=== PATIENT | female | born 1940 | race Caucasian/White ===

== ENCOUNTER 2019-06-01 06:11 | Day surgery (SDC) | payer MEDICARE, SELFPAY ==
[2019-05-31 13:31] VITALS: BMI 29.6
[2019-06-01] MEDS: sodium chloride 0.9% 1,000 ML 30 ML (07:00)
--- NOTE | 2019-06-01 07:10 | ANES.PREANES ---
Pre-Anesthetic Assessment Pre-Anesthetic Assessment: Height/Weight: Height 1.57 m Weight 73.482 kg Proposed Procedure: Operation Date: 06/01/19 07:30 Proposed Procedures p Colonoscopy(Not Applicable) - Alberto Harrison MD Last intake: Intake Last Liquid Date 05/31/19 Last Liquid Time 22:30 Last Solid Date 05/31/19 Last Solid Time 22:30 Social: Social History: Tobacco (never) Exam: Pre-Anes Outpt Exam: alert, oriented x 3, clear to auscultation bilaterally and regular rate & rhythm (history of pneumonia 2017) Airway: Submandibular: WNL Cervical ROM: WNL MP: 2 Additional comments: no chips/broken teeth noted Pulmonary: Pulmonary: SOB (seasonal allergies) CV/HEM: CV/HEM: HTN : Comments: kidney stones GI: GI: GERD Metabolic: Metabolic: Hyperlipidemia (diet controlled) Musc/skel: Musc/skel: OA/DJD (bilateral knee replacements) Comments: history of falls Anesthetic Plan: ASA status: III Anesthesia: MAC Risk of > 500 ml blood loss (7ml/kg in children): No PFSH Anesthesia PFSH: Family History Father Throat cancer Brother Lung cancer Grandmother Lung cancer Family/Other Breast cancer Sister Stroke Daughter Diabetes Other CHF (congestive heart failure) Data Anesthesia Cardiac Studies: No Data to Display
[2019-06-01 07:42] VITALS: BP 159/83; PULSE 81; RESP 20; TEMP 37.4; O2SAT 96
--- NOTE | 2019-06-01 07:51 | PM.HPUD ---
H&P update H&P Update: DATE OF SURGERY/PROCEDURE: 06/01/19 DATE H&P PERFORMED: 06/01/19 H&P UPDATE INFORMATION: No changes to prior documentation and H&P to be scanned into chart PLANNED PROCEDURE: Operation Date: 06/01/19 07:30 Proposed Procedures p Colonoscopy(Not Applicable) - Alberto Harrison MD Full H&P HPI: PRIMARY INDICATION/DIAGNOSIS FOR SURGICAL PROCEDURE: Colon cancer screening PLANNED PROCEDURE: Screening colonoscopy HPI: The patient is a 78-year-old female who presents to the endoscopy suite today after having consulted with me in the office. The patient has had 1 previous colonoscopy in 2002. She desires a another colonoscopy due to her family history. Due to her age being greater than 75 years old, we had an extensive discussion about the pros and cons, and I made it clear to her that in her circumstance it may be appropriate not to do a colonoscopy at this time. Because of her family history and her concerns, together with it being 17 years since she has had one done, she wanted to proceed, and I agreed to do the procedure. Perinent History: Family History: Family History (Updated 05/31/19 @ 13:36 by Dee Mcdaniels LPN) Father Throat cancer Brother Lung cancer Grandmother Lung cancer Family/Other Breast cancer Sister Stroke Daughter Diabetes Other CHF (congestive heart failure) A&P Additional A&P Information Additional A&P Information: Colon cancer screening via screening colonoscopy . Risks were discussed with patient including risks of bleeding, perforation, and sedation.
[2019-06-01 08:12] VITALS: BP 89/56; PULSE 84; RESP 16; TEMP 36.2; O2SAT 97
[2019-06-01 08:30] VITALS: BP 132/71; PULSE 60; RESP 16
[2019-06-01 08:55] VITALS: BP 154/70; PULSE 60; RESP 16; O2SAT 100
--- NOTE | 2019-06-01 10:17 | PM.PACU ---
PACU note Post-Anesthesia Exam: awake and vital signs stable
== END 2019-06-01 09:03 | disposition home or self-care (01) ==
PROVIDERS: Family Provider Family Medicine; PCP Physician Assistant; Visit Provider Family Medicine
PROC: 0DJD8ZZ Inspection of Lower Intestinal Tract, Via Natural or Artificial Opening Endoscopic (ICD-10-PCS; CPT 45378; principal; 2019-06-01 07:30)
DX: Z12.11 Encounter for screening for malignant neoplasm of colon (principal); Z80.0 Family history of malignant neoplasm of digestive organs; Z80.8 Family history of malignant neoplasm of other organs or systems; Z80.3 Family history of malignant neoplasm of breast; Z80.1 Family history of malignant neoplasm of trachea, bronchus and lung; Z82.49 Family history of ischemic heart disease and other diseases of the circulatory system; Z82.3 Family history of stroke; Z83.3 Family history of diabetes mellitus; M19.90 Unspecified osteoarthritis, unspecified site
CPT/HCPCS: 45378; 99221; G0121; J2704; J7030

== ENCOUNTER 2019-06-09 21:05 | Emergency (ER) | payer MEDICARE, SELFPAY ==
[2019-06-09 21:07] VITALS: PULSE 76; RESP 18; TEMP 36.4; O2SAT 98; BMI 25.8
--- NOTE | 2019-06-09 22:10 | XRR_ITS ---
PROCEDURE INFORMATION: Exam: XR Left Elbow Exam date and time: 06/09/2019 10:26 PM Age: 79 years old Clinical indication: Injury or trauma; Fall; Initial encounter; Blunt trauma (contusions or hematomas; Elbow; Left TECHNIQUE: Imaging protocol: XR Left elbow. Views: 3 or more views. COMPARISON: No relevant prior studies available. FINDINGS: Bones/joints: Normal. Soft tissues: Normal. XR/XR elbow LT min 3V* [id number] IMPRESSION: No acute findings.
--- NOTE | 2019-06-09 22:10 | ED_ITS ---
Entered by Starr Johnson, acting as scribe for Gianluca Hernandez DO Jun 09, 2019 21:05 HPI - Fall General: Chief Complaint: Fall Stated Complaint: FALL Time Seen by Provider: 06/09/19 22:10 Source: patient and family Mode of arrival: ambulatory History of Present Illness: HPI Narrative: 79 y/o female presents to the ED post fall down stairs. Pt states she was at the [employer] when this occurred. She reports having left hip and elbow pain. MD complaint: fall Onset (ago): hour(s) Fall from: standing Fall witnessed: yes, by family Place fall occurred: other ([id number] basketball game) Loss of consciousness: None Location of injury: other (left hip) Location of injury - extremities: Left: shoulder and elbow Severity: moderate Quality: sharp Associated symptoms-after fall: Reports difficulty walking; Denies abdominal pain, chest pain, confusion, headache(s), hematuria, neck pain or vertigo Review of Systems Const: Denies: fever or chills Eyes: Denies: change in vision or blurry vision ENMT: Denies: painful swallowing, swelling of lips/tongue, bleeding gums, dental pain, Change in hearing, nose bleeds, post nasal drip or facial/sinus pain Card: Denies: chest pain, palpitations, irregular heart rhythm, edema, swelling of feet/ankles, shortness of breath on exertion or shortness of breath when lying down Resp: Denies: shortness of breath, productive cough, non-productive cough or wheezing GI: Denies: abdominal pain, nausea, vomiting, rectal pain, blood in stool or black tarry stool : Denies: painful urination, urinary frequency, urinary urgency or blood in urine Musc: Reports: extremity pain (left shoulder, elbow, hip/groin), extremity swelling (left elbow) and joint pain; Denies: neck pain, back pain, redness or joint warmth Skin/Breast: Denies: rash, itching or redness Neuro: Reports: difficulty walking; Denies: headache, dizziness, vertigo, confusion or seizure-like activity Psych: Denies: anxiety, visual hallucinations or auditory hallucinations PFSH ED PFSH: Statuses (acute, chronic, etc) shown below reflect problem list status as previously entered and may not be historically accurate Social History (Reviewed 06/01/19 @ 07:18 by LEONIE Bourgeois Smoking and tobacco status: never smoked Physical Exam Const: COMMON NORMALS: alert GENERAL APPEARANCE: well developed ORIENTATION/CONSCIOUSNESS: Yes awake, Yes oriented to person, Yes oriented to place and Yes oriented to time HENMT: COMMON NORMALS: normocephalic, external ears normal, external nose normal and moist oral mucous membranes HEAD & SCALP: normocephalic; no scalp tenderness FACE & SINUS: normal facial exam NOSE: external nose normal and no nasal discharge EXTERNAL EAR: Yes external ears normal MOUTH: tongue normal TEETH & GINGIVA: no abnormal tooth and associated gingiva THROAT: posterior oropharynx normal; no peritonsillar mass Eye: COMMON NORMALS: PERRL, EOMs intact bilaterally and conjunctivae normal EYELID: eyelids normal CONJUNCTIVA: Yes conjunctivae normal PUPIL: Yes PERRL Neck/C-Spine: COMMON NORMALS: full ROM GENERAL: No tracheal deviation CERVICAL SPINE: Yes normal cervical lordosis, No cervical spine tenderness, No step off deformity, No paracervical muscle tenderness and No paracervical muscle spasm Chest: COMMONS NORMALS: inspection of chest normal CHEST: Yes symmetrical chest wall rise and No tenderness Resp: COMMON NORMALS: clear to auscultation bilaterally EFFORT & INSPECTION: No tachypneic, No respiratory distress, No retractions, No uses accessory muscles and No tracheal deviation AUSCULTATION: clear to auscultati on bilaterally, no rhonchi, no wheezes and lung sounds not diminished Cardio: COMMON NORMALS: regular rate and regular rhythm RATE: regular rate RHYTHM: regular rhythm HEART SOUNDS: no murmurs PERIPHERAL PULSES: radial pulses present GI: INSPECTION: No abdominal distension AUSCULTATION: No hyperactive bowel sounds and No hypoactive bowel sounds PALPATION: No tender, No guarding and No rigid PERCUSSION: no dullness to percussion and no tympanic to percussion Back/Pelvis: PELVIS: Yes other (pain with external rotation) COCCYX: other (pain with external rotation) Extremity: LEFT UPPER EXTREMITY: Yes elbow joint Left elbow: Yes palpation (tender) LEFT LOWER EXTREMITY: Yes hip joint Left hip: Yes inspection, Yes palpation (Tender on palpation anteriorly, and laterally. Negative logroll. Positive on [facility] testing) and No ROM Neuro: SENSORIUM/ORIENTATION: Yes alert, Yes oriented to person, Yes oriented to place and Yes oriented to time Psych: COMMON NORMALS: mental status grossly normal and speech normal SPEECH: Yes normal speech Skin: COMMON NORMALS: no rashes or lesions noted GENERAL SKIN EXAM: no rashes or lesions noted Course Vital Signs: Vital signs: Vital Signs Temperature 97.6 F 06/09/19 21:07 Pulse Rate 56 L 06/10/19 02:51 Respiratory Rate 18 06/10/19 02:51 Blood Pressure 170/77 06/10/19 02:51 Pulse Oximetry 95 06/10/19 02:51 MDM - Fall MDM Narrative: Medical decision making narrative: 79-year-old female presents in pain following a fall from standing height at a basketball game. X-rays of the left hip and the left elbow, her complaints of pain, were read negative by radiology. She is able to put some weight on the hip. There is no deformity. She can bend the elbow. She does have some what appears to be traumatic olecranon bursitis on the left. She will receive an Roberto Carlos wrap for this. She received some pain medication, as she was quite hypertensive, and attributed this to the her pain level. She got nauseated after the pain medication, and threw up a few times. After this began to resolve following oral Zofran, her pressure came down, and she was allowed discharge. Discharge Plan Discharge Patient Disposition: Home, Self-Care Clinical Impression: Contusion of left elbow Qualifiers: Encounter type: initial encounter Qualified Code(s): S50.02XA - Contusion of left elbow, initial encounter Contusion of hip, left Qualifiers: Encounter type: initial encounter Qualified Code(s): S70.02XA - Contusion of left hip, initial encounter Condition: Stable Prescriptions: New tramadol 50 mg tablet 50 mg PO Q4H PRN (Reason: pain) Qty: 20 RF: 0 No Action metoprolol succinate 50 mg tablet extended release 24 hr 50 mg PO DAILY RF: 0 acetaminophen [8 Hour Pain Reliever] 650 mg Tablet Extended Release 650 mg PO BID PRN (Reason: Pain) RF: 0 losartan-hydrochlorothiazide 100-25 mg tablet 1 tab PO DAILY RF: 0 montelukast [Singulair] 10 mg tablet 10 mg PO DAILY RF: 0 gabapentin 100 mg capsule 100 mg PO BEDTIME RF: 0 fluticasone propionate [Flonase Allergy Relief] 50 mcg/actuation [place],Suspension 1 spray INTRANASAL DAILY RF: 0 Discharge Orders: Discharge Order (Routine); Ordered 06/09/19 Ordered By: Gianluca Hernandez Referrals: Robin Parikh DO [Family Provider] - Tressa Mcgill PA [Primary Care Provider] - 4-7 days Discharge Diet: Usual diet Discharge Activity: Increase activity as tolerated Patient Instructions: Contusion in Adults (ED) Activity Restrictions/Additional Instructions: Ice to both areas frequently. You may require the use of a cane, crutch, or walker for a few days. You may weight-bear as tolerated otherwise. Return for worsening pain despite treatment, inability to ambulate, other concerning symptoms. Discharge Date/Time: 06/10/19 02:48 Coding Level of Care Code ED Agricultural Purchasing Agent for Chg Fwd The documentation recorded by the Alex le Ashley, accurately reflects the service I personally performed and the decisions made by David berg Jeremy John, DO Jun 09, 2019 21:05
--- NOTE | 2019-06-09 22:10 | XRR_ITS ---
PROCEDURE INFORMATION: Exam: XR Left Hip with Pelvis when Performed Exam date and time: 06/09/2019 10:26 PM Age: 79 years old Clinical indication: Injury or trauma; Fall; Initial encounter; Blunt trauma (contusions or hematomas); Left; Hip TECHNIQUE: Imaging protocol: XR Left hip with pelvis when performed. Views: 2 or 3 views. COMPARISON: CR Pelvis AP 1 or 2 views* [id number] 06/28/2017 4:03 PM FINDINGS: Bones/joints: Unremarkable. No acute fracture. Soft tissues: Unremarkable. XR/XR hip LT 2-3V wo/w pel* [id number] IMPRESSION: No acute findings.
[2019-06-09 22:11] VITALS: BP 191/78; PULSE 86; RESP 17; O2SAT 96
[2019-06-09] MEDS: TRAMadol 50 mg Tablet 100 MG PO (23:02)
[2019-06-09 23:49] VITALS: BP 228/111; RESP 20; O2SAT 99
[2019-06-09] MEDS: cloNIDine 0.1 mg Tablet 0.2 MG PO (23:49)
[2019-06-09] MEDS: HYDROmorphone 1 mg/mL INJ 1 mL 1.5 MG IM (23:49)
[2019-06-10] MEDS: ondansetron 4 MG Tablet PO (01:30)
[2019-06-10 02:19] VITALS: BP 176/108; RESP 18; O2SAT 92
[2019-06-10 02:51] VITALS: BP 170/77; PULSE 56; RESP 18; O2SAT 95
== END 2019-06-10 02:48 | disposition home or self-care (01) ==
PROVIDERS: Emergency Provider Emergency Medicine; Family Provider Family Medicine; PCP Physician Assistant
DX: S50.02XA Contusion of left elbow, initial encounter (principal); S70.02XA Contusion of left hip, initial encounter; W10.8XXA Fall (on) (from) other stairs and steps, initial encounter; Y92.89 Other specified places as the place of occurrence of the external cause
CPT/HCPCS: 73080; 73502; 96372; 99281; J1170; Q0162

== ENCOUNTER 2019-06-18 15:57 | Outpatient (CLI) | payer MEDICARE, SELFPAY ==
--- NOTE | 2019-06-18 16:06 | CTR_ITS ---
PROCEDURE INFORMATION: Exam: CT Pelvis Without Contrast; Skeletal Exam date and time: 06/18/2019 4:07 PM Age: 79 years old Clinical indication: Pain and injury or trauma; Fall; Initial encounter; Blunt trauma (contusions or hematomas); Hip pain; Left hip; Injury date: 1 week ago; Additional info: Acute left hip pain. Left hip included in pelvis. TECHNIQUE: Imaging protocol: Computed tomography images of the pelvis without contrast. Exam focused on the skeletal structures. Total DLP: 584.34 mGy-cm Radiation optimization: All CT scans at this facility use at least one of these dose optimization techniques: automated exposure control; mA and/or kV adjustment per patient size (includes targeted exams where dose is matched to clinical indication); or iterative reconstruction. COMPARISON: CR XR hip LT 2-3V wo/w pel* [id number] 06/09/2019 10:12 PM FINDINGS: Intraperitoneal space: No free fluid within the pelvis or within the dependent portions of the peritoneum. Vasculature: Calcification of the aorta. Bones/joints: osseous structures of the pelvis without an acute process. Sacroiliac joints without separation/diastases/fracture. Iliac bones unremarkable/noncontributory Mild degenerative changes within the hips Degenerative changes within the visualized portions of the caudal aspect of the lumbar spine. Mild. Soft tissues: Unremarkable. Other findings: rami are intact. CT/CT bony pelvis [id number] IMPRESSION: No acute process. Mild degenerative changes within the hips and lumbar spine. Radiation Dose CTDIVOL = (mGy): DLP = 584.34 (mGy-cm)
== END 2019-06-18 15:58 | disposition home or self-care (01) ==
PROVIDERS: Family Provider Physician Assistant; PCP Physician Assistant; Visit Provider Physician Assistant
DX: M16.12 Unilateral primary osteoarthritis, left hip (principal); M47.896 Other spondylosis, lumbar region; M25.552 Pain in left hip; R10.2 Pelvic and perineal pain
CPT/HCPCS: 72192

== ENCOUNTER 2020-02-19 00:01 | Emergency (ER) | payer MEDICARE, SELFPAY ==
--- NOTE | 2020-02-19 00:07 | ECG_ITS ---
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 Measurements Intervals [place] Rate: 70 P: 67 MN: 158 QRS: 10 QRSD: 84 T: 25 QT: 406 QTc: 441 Interpretive Statements SINUS RHYTHM Compared to ECG 08/10/2018 12:14:26 Sinus arrhythmia no longer present Electronically Signed On 02-19-2020 18:28:44 CDT by Rani Gomez M.D. [id number] f
--- NOTE | 2020-02-19 00:07 | XRR_ITS ---
PROCEDURE INFORMATION: Exam: XR Chest, 1 View Exam date and time: 02/19/2020 1:03 AM Age: 79 years old Clinical indication: Condition or disease; Other: Positive covid; Cough and shortness of breath; Prior surgery; Surgery type: RT shoulder; Additional info: Fever TECHNIQUE: Imaging protocol: XR of the chest Views: 1 view. COMPARISON: CR Chest 1 [place] [id number] 08/10/2018 12:16 PM FINDINGS: Lungs: No focal peripheral lung consolidation, air bronchogram formation, or silhouette sign. Pleural space: No pleural effusion or pneumothorax. Heart/Mediastinum: The cardiac silhouette is not enlarged. The mediastinal contours are normal. Bones/joints: The patient has had a right shoulder arthroplasty. Recent surgery as evidenced by changes in the hardware and the presence of skin john. Old, healed left humeral neck fracture and greater tuberosity fracture. XR/XR chest 1V portable [id number] IMPRESSION: No radiographic evidence of pneumonia. However, noncontrast CT CHEST is more sensitive in detecting ground-glass pulmonary opacities seen with COVID-19 pneumonia.
--- NOTE | 2020-02-19 00:16 | W.ED.SOB ---
HPI - SOB/Dyspnea General: Chief Complaint: Chest Pain Stated Complaint: sob/ covid Time Seen by Provider: 02/19/20 00:07 Source: patient Mode of arrival: ambulatory Limitations: no limitations History of Present Illness: HPI Narrative: 79-year-old female who presents here with COVID. States she had a slight cough and chest pain. She tested positive last week. Patient has been was admitted this morning with COVID. Patient is in no distress here and pulse ox on room air is 96%. MD elicited complaint: shortness of breath and cough Associated symptoms: Deny abdominal pain, chest pain, fever(s), nausea or vomiting Review of Systems Const: Denies: fever(s), chills, body aches or change in appetite Eyes: Denies: blurry vision or eye discomfort ENMT: Denies: throat pain or dental pain Card: Denies: chest pain Resp: Reports: dyspnea and non-productive cough GI: Denies: abdominal pain, nausea, vomiting or diarrhea : Denies: dysuria Musc: Denies: neck pain or back pain Skin/Breast: Denies: rash Neuro: Denies: headache(s) Psych: Denies: depression Luis/Lymph: Denies: easy bruising All/Imm: Denies: urticaria PFSH ED PFSH: Family History Father Throat cancer Brother Lung cancer Grandmother Lung cancer Family/Other Breast cancer Sister Stroke Daughter Diabetes Other CHF (congestive heart failure) Social History Smoking and tobacco status: never smoked Physical Exam Const: COMMON NORMALS: no acute distress, patient oriented x3 and healthy appearing HENMT: COMMON NORMALS: normocephalic and atraumatic HEAD & SCALP: normocephalic and atraumatic Eye: COMMON NORMALS: Equal, round and reactive pupils present and EOMs intact bilaterally PUPIL: Yes Equal, round and reactive pupils present Neck/C-Spine: COMMON NORMALS: full ROM and supple Chest: COMMONS NORMALS: normal inspection of the chest and normal palpation of entire chest wall Resp: COMMON NORMALS: normal respiratory effort, No retractions, No use of accessory muscles and clear to auscultation bilaterally AUSCULTATION: clear to auscultation bilaterally Cardio: COMMON NORMALS: regular rate, regular rhythm and No murmurs present (Cardio) RATE: regular rate RHYTHM: regular rhythm GI: COMMON NORMALS: Normal to inspection, nondistended, normoactive bowel sounds present, Soft to palpation, non-tender and no masses PALPATION: Yes Soft to palpation Extremity: COMMON NORMALS: normal to inspection and full ROM Neuro: COMMON NORMALS: patient oriented x3, moves all extremities and no focal motor deficits Psych: COMMON NORMALS: mental status grossly normal, Normal thought process present and cooperative THOUGHT PROCESS: Normal thought process present Skin: COMMON NORMALS: no rashes or lesions noted and no wounds GENERAL SKIN EXAM: no rashes or lesions noted Course Vital Signs: Vital signs: Vital Signs Temperature 98.4 F 02/19/20 00:24 Pulse Rate 78 02/19/20 01:01 Respiratory Rate 28 H 02/19/20 01:01 Blood Pressure 212/79 02/19/20 01:01 Pulse Oximetry 96 02/19/20 01:01 MDM - SOB/Dyspnea MDM Narrative: Medical decision making narrative: Patient presents here with cough fever with COVID. She is not requiring any oxygen is well-appearing here. She is stable for discharge and return if worsening. She has no signs of pneumonia. Lab Data: Labs: Lab Results 02/19/20 02/19/20 02/19/20 Range/Units 00:10 00:10 00:10 WBC 5.4 (4.0-10.0) 10^3/ uL RBC 4.06 L (4.1-5.3) 10^6/u L Hgb 12.1 (11.5-15.3) g/dL Hct 37.8 (37.0-47.0) % MCV 93.1 (81-99) fL MCH 29.8 (28.0-34.0) pg MCHC 32.0 (30.0-36.0) g/dL RDW 11.8 L (12.1-15.1) % Plt Count 304 (130-400) 10^3/c mm MPV 9.8 (7.4-10.4) fL Neut % (Auto) 51.5 % Lymph % (Auto) 31.7 % Larue % (Auto) 9.5 % Eos % (Auto) 6.3 % Baso % (Auto) 0.4 % Neut # (Auto) 2.76 (1.8-7.7) 10^3/u L Lymph # (Auto) 1.7 (0.8-4.8) 10^3/u L Larue # (Auto) 0.5 (0.2-0.9) 10^3/u L Eos # (Auto) 0.3 (0.0-0.8) 10^3/u L Baso # (Auto) 0.0 (0.0-0.1) 10^3/u L Nucleated RBC % (a uto) 0 % Nucleated RBCs # 0.0 /100WBC Fibrinogen 595 H (174-498) mg/dL Sodium 139 (136-145) mmol/L Potassium 3.9 (3.5-5.1) mmol/L Chloride 102 (98-107) mmol/L Carbon Dioxide 25 (22-29) mmol/L Anion Gap 15.9 (5-19) BUN 12 (8-23) mg/dL Creatinine 0.8 (0.5-0.9) mg/dL GFR Calculation Not Reportable Glucose 114 (65-115) mg/dL Calculated Osmolal ity 289 (285-295) mOsm/k g Lactic Acid (0.5-2.2) mmol/L Calcium 8.5 (8.5-10.5) mg/dL Total Bilirubin 0.6 (0.15-1.2) mg/dL AST 24 (0-32) U/L ALT 25 (0-33) U/L Alkaline Phosphata se 83 (35-105) IU/L C-Reactive Protein 7.4 H (0.0-4.9) mg/L NT-Pro-B Natriuret Pep 123 (0-450) pg/mL Total Protein 7.2 (6.6-8.7) g/dL Albumin 4.1 (3.5-5.2) g/dL Globulin 3.1 (1.3-4.6) g/dL 02/19/20 Range/Units 00:10 WBC (4.0-10.0) 10^3/ uL RBC (4.1-5.3) 10^6/u L Hgb (11.5-15.3) g/dL Hct (37.0-47.0) % MCV (81-99) fL MCH (28.0-34.0) pg MCHC (30.0-36.0) g/dL RDW (12.1-15.1) % Plt Count (130-400) 10^3/c mm MPV (7.4-10.4) fL Neut % (Auto) % Lymph % (Auto) % Larue % (Auto) % Eos % (Auto) % Baso % (Auto) % Neut # (Auto) (1.8-7.7) 10^3/u L Lymph # (Auto) (0.8-4.8) 10^3/u L Larue # (Auto) (0.2-0.9) 10^3/u L Eos # (Auto) (0.0-0.8) 10^3/u L Baso # (Auto) (0.0-0.1) 10^3/u L Nucleated RBC % (a uto) % Nucleated RBCs # /100WBC Fibrinogen (174-498) mg/dL Sodium (136-145) mmol/L Potassium (3.5-5.1) mmol/L Chloride (98-107) mmol/L Carbon Dioxide (22-29) mmol/L Anion Gap (5-19) BUN (8-23) mg/dL Creatinine (0.5-0.9) mg/dL GFR Calculation Glucose (65-115) mg/dL Calculated Osmolal ity (285-295) mOsm/k g Lactic Acid 1.6 (0.5-2.2) mmol/L Calcium (8.5-10.5) mg/dL Total Bilirubin (0.15-1.2) mg/dL AST (0-32) U/L ALT (0-33) U/L Alkaline Phosphata se (35-105) IU/L C-Reactive Protein (0.0-4.9) mg/L NT-Pro-B Natriuret Pep (0-450) pg/mL Total Protein (6.6-8.7) g/dL Albumin (3.5-5.2) g/dL Globulin (1.3-4.6) g/dL Imaging Data^: CXR: Attestation: I personally reviewed and interpreted this imaging study as follows: My impression: no acute abnormality EKG Data^: EKG 1: Attestation: I personally reviewed and interpreted this EKG as follows: EKG Interpretation Date: 02/19/20 EKG interpretation time: 00:12 Interpretation: nsr hr [address] or t wave abnormalities qr 84 qtc 427 Discharge Plan Discharge Patient Disposition: Home Clinical Impression: COVID-19 Condition: Stable Prescriptions: No Action tramadol 50 mg tablet 50 mg PO Q4H PRN (Reason: pain) Qty: 20 RF: 0 metoprolol succinate 50 mg tablet extended release 24 hr 50 mg PO DAILY RF: 0 acetaminophen [8 Hour Pain Reliever] 650 mg Tablet Extended Release 650 mg PO BID PRN (Reason: Pain) RF: 0 losartan-hydrochlorothiazide 100-25 mg tablet 1 tab PO DAILY RF: 0 montelukast [Singulair] 10 mg tablet 10 mg PO DAILY RF: 0 gabapentin 100 mg capsule 100 mg PO BEDTIME RF: 0 fluticasone propionate [Flonase Allergy Relief] 50 mcg/actuation [place],Suspension 1 spray INTRANASAL DAILY RF: 0 Discharge Orders: Discharge Order (Routine); Ordered 02/19/20 Ordered By: Hoda Calvin Referrals: Tressa Mcgill PA [Primary Care Provider] - 1-3 days Discharge Diet: Advance as tolerated Discharge Activity: Resume usual activity Patient Instructions: Upper Respiratory Infection (ED) Coding Level of Care Code ED Associate Software Engineer for Chg Fwd Exam Comprehensive
[2020-02-19 00:19] VITALS: BP 229/102; PULSE 75; RESP 25; O2SAT 94
[2020-02-19 00:24] VITALS: BP 229/102; PULSE 74; RESP 18; TEMP 36.9; O2SAT 95; BMI 28.3
[2020-02-19 00:30] VITALS: BP 229/102; PULSE 71; RESP 22; O2SAT 95
[2020-02-19 00:42] LABS: Lactic Sepsis W/Reflex 1.6 mmol/L (0.5-2.2)
[2020-02-19 00:43] LABS: Fibrinogen 595 mg/dL (174-498)
[2020-02-19] MEDS: hyDRALAzine 20 mg/mL INJ 1 mL 10 MG IVP (00:46)
[2020-02-19 00:52] LABS: Alanine Aminotransferase 25 U/L (0-33); Albumin Level 4.1 g/dL (3.5-5.2); Alkaline Phosphatase 83 IU/L (35-105); Anion Gap 15.9 (5-19); Aspartate Amino Transferase 24 U/L (0-32); Blood Urea Nitrogen 12 mg/dL (8-23); C Reactive Protein 7.4 mg/L (0.0-4.9); Calcium 8.5 mg/dL (8.5-10.5); Carbon Dioxide 25 mmol/L (22-29); Chloride 102 mmol/L (98-107); Globulin 3.1 g/dL (1.3-4.6); Glucose 114 mg/dL (65-115); NT Pro B Type Natriuretic Pept 123 pg/mL (0-450); Osmolality Calculated 289 mOsm/kg (285-295); Potassium 3.9 mmol/L (3.5-5.1); Sodium 139 mmol/L (136-145); Total Bilirubin 0.6 mg/dL (0.15-1.2); Total Protein 7.2 g/dL (6.6-8.7)
[2020-02-19 01:01] VITALS: BP 212/79; PULSE 78; RESP 28; O2SAT 96
[2020-02-19 01:01] LABS: Basophils % 0.4 %; Eosinophils # 0.3 10^3/uL (0.0-0.8); Eosinophils % 6.3 %; Hematocrit 37.8 % (37.0-47.0); Hemoglobin 12.1 g/dL (11.5-15.3); Lymphocytes # 1.7 10^3/uL (0.8-4.8); Lymphocytes % 31.7 %; Mean Corpuscular Hemoglobin 29.8 pg (28.0-34.0); Mean Corpuscular Volume 93.1 fL (81-99); Mean Platelet Volume 9.8 fL (7.4-10.4); Monocytes # 0.5 10^3/uL (0.2-0.9); Monocytes % 9.5 %; Neutrophils # 2.76 10^3/uL (1.8-7.7); Neutrophils % 51.5 %; Nucleated Red Blood Cells % 0 %; Platelet Count 304 10^3/cmm (130-400); Red Blood Count 4.06 10^6/uL (4.1-5.3); Red Cell Distribution Width 11.8 % (12.1-15.1); White Blood Count 5.4 10^3/uL (4.0-10.0)
[2020-02-19] MEDS: dexamethasone 10 mg/mL INJ IVP (01:39)
[2020-02-19 01:40] VITALS: BP 179/89; PULSE 76; RESP 18; O2SAT 96
== END 2020-02-19 01:43 | disposition home or self-care (01) ==
PROVIDERS: Emergency Provider Emergency Medicine; Family Provider Physician Assistant; PCP Physician Assistant
DX: U07.1 COVID-19 (principal)
CPT/HCPCS: 12345; 71045; 80053; 83605; 83880; 85025; 85384; 86140; 87040; 93005; 96374; 96375; 99283; J0360; J1100

== ENCOUNTER 2020-06-20 11:23 | Outpatient (CLI) | payer MEDICARE, SELFPAY ==
--- NOTE | 2020-06-20 11:32 | MR_ITS ---
WS: [id number] [facility] ANGIOGRAPHY [place] [facility] [place] HISTORY: [facility] COMPARISON: None available. TECHNIQUE: 3-D MR angiography is performed of the [place]. All images are reviewed including source images. Distal vertebral and basilar arteries are normal caliber. LEFT vertebral artery is minimally dominant . Persistent circulation of the posterior RIGHT cerebral artery. Dominant RIGHT posterior commu nicating artery. Hypoplastic or absent LEFT posterior cerebral communicating artery. Intracranial portion of the internal carotid arteries are normal course and caliber. No significant a therosclerosis, stenosis or aneurysm identified. Middle and anterior cerebral arteries are both paten t with no significant disease. Anterior communicating artery is also normal. Mild mucoperiosteal thickening maxillary sinuses. MR/MR angio head wo con [id number] IMPRESSION: 1. No aneurysms or significant atherosclerotic disease. 2. No stenosis.
== END 2020-06-20 11:24 | disposition home or self-care (01) ==
LOC: RADSHAW 11:31
PROVIDERS: PCP Physician Assistant; Visit Provider Physician Assistant
DX: H81.4 Vertigo of central origin (principal)
CPT/HCPCS: 70544

== ENCOUNTER → 2025-02-12 08:19 | Outpatient (BNVA) | payer MEDICARE, SELFPAY | PROVIDERS: PCP Physician Assistant; Visit Provider Dermatology | DX: L57.8 Other skin changes due to chronic exposure to nonionizing radiation (principal); I83.12 Varicose veins of left lower extremity with inflammation; I83.11 Varicose veins of right lower extremity with inflammation; L85.3 Xerosis cutis; L91.8 Other hypertrophic disorders of the skin; L82.1 Other seborrheic keratosis; D48.5 Neoplasm of uncertain behavior of skin; L57.0 Actinic keratosis | CPT/HCPCS: 11102; 17000; 99203 ==

== ENCOUNTER → 2025-03-13 13:53 | Outpatient (BNVA) | payer MEDICARE, SELFPAY | PROVIDERS: PCP Physician Assistant; Visit Provider Dermatology | DX: D04.4 Carcinoma in situ of skin of scalp and neck (principal) | CPT/HCPCS: 17272 ==

== ENCOUNTER → 2025-05-15 11:20 | Outpatient (BNVA) | payer MEDICARE, SELFPAY | PROVIDERS: PCP Physician Assistant; Visit Provider Dermatology | DX: D48.5 Neoplasm of uncertain behavior of skin (principal); D22.5 Melanocytic nevi of trunk; L57.8 Other skin changes due to chronic exposure to nonionizing radiation; L85.3 Xerosis cutis; L57.0 Actinic keratosis | CPT/HCPCS: 17000; 99213 ==